=== PATIENT | male | born 1990 | race Caucasian/White ===

== ENCOUNTER 2016-09-28 08:59 | Emergency (ER) | payer OTHER ==
[2016-09-28 09:09] VITALS: TEMP 98.2
--- NOTE | 2016-09-28 09:16 | EDPHY ---
[id number] OF PRESENT ILLNESS: This is a 26-year-old male status post tonsillectomy 08/28/16 who presents with FERRARO. Onset of headache and neck "soreness " September 18. The neck pain occurred with neck rotation and has resolved since onset. The headache has persisted. The FERRARO is moderate and varies in location, sometimes frontal, other times posterior. He admits mild photophobia and intermittent dizziness when the headache is bad. The headache is worsened with standing up or lying flat. He has been using the oxycodone from his tonsillectomy procedure to treat the pain. Has not tried Tylenol and is allergic to NSAIDS. He denies associated fever, sore throat, cough, numbness or weakness, or other complaints. No recent illness. REVIEW OF SYSTEMS: Constitutional: No fever, no chills Eyes: No visual changes ENT: No sore throat Respiratory: No cough, no shortness of breath Cardiac: No chest pain Gastrointestinal: No nausea, no vomiting, no abdominal pain Genitourinary: No hematuria, no dysuria Musculoskeletal: No leg pain or swelling Skin: No rash Neurological: See HPI. Psychiatric: No depression Past Medical/Surgical History: Lacerated liver, recurrent strep throat, splenectomy, tonsillectomy. Social History: Here alone. Smoking Status: Never smoked Physical Exam: General Appearance: Alert, smiling, appears in no pain. In no acute distress. Eyes: Pupils equal and round, no conjunctival pallor or injection ENT, Mouth: Mucous membranes moist Neck: Normal inspection Respiratory: Lungs are clear to auscultation Cardiovascular: Regular rate and rhythm Gastrointestinal: Abdomen is soft and non- tender Neurological: Alert, oriented x3, cranial nerves II through XII intact, motor 5 /5, sensory intact to light touch, normal gait. No pronator drift. Skin: Warm and dry, no rash Extremities: Nontender, no pedal edema Psychiatric: Mood and affect normal Constitutional: Initial Vital Signs Temperature (C) 36.8 C 09/28/16 09:05 Heart Rate 105 H 09/28/16 09:05 Respiratory Rate 18 09/28/16 09:05 Blood Pressure 126/87 H 09/28/16 09:05 O2 Sat (%) 97 09/28/16 09:05 O2 Delivery Mode Room Air Allergies/Adverse Reactions: NSAIDS (Non-Steroidal Anti-Inflamma Allergy (Intermediate, Verified 02/13/16 18: 57) Hives Home Medications: Medication Instructions Recorded NK [No Known Home Meds] 09/28/16 Medical Decision Making - Diagnostics Imaging: Study: CT of the head. Indication: Headache. 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 Correlation with previous studies would be helpful to assess for more specific interval change. The study was read by the radiologist, Dr. Martinez. I viewed the images myself on the PACS system. ED Course/Re-evaluation: This patient presents with a 10 day history of headache, without associated symptoms. He has had a splenectomy in the past, so he is at higher risk for infection, but has not had no recent illness and does not have a fever. He is not ill appearing and I do not suspect bacterial meningitis or acute sinusitis in this patient. CT scan was ordered, given that he recently had tonsillectomy and has a persistent headache. An IV was established and labs ordered. The patient declined IV medications, as he needs to drive home. 1107: Reassessed patient. Discussed results of CT and blood work. Unclear etiology of headache. The differential on the white blood cell count is atypical and there is no old CBC for comparison. I carefully considered whether this patient may have an infection, though I still certainly doubt the presence of a serious infection, given no recent illness and no fever. Have decided that lumbar puncture is not indicated in this patient and that he is safe and stable for discharge home. He is comfortable being discharged. I answered all of his questions. He was given strict return precautions and warnings prior to leaving. He understands to follow up without fail with his primary care provider tomorrow for recheck or return to the emergency department if he is unable to get an appointment. Differential Diagnosis: Headache including but not limited to subarachnoid hemorrhage, migraine headache , tension headache and infectious causes such as meningitis, pharyngitis and sinusitis. - Data Points Laboratory Results: Laboratory Results 09/28/16 09:10 09/28/16 09:10 09/28/16 09:10 WBC 10.48 H 10^3/uL (3.80-9.50) RBC 5.49 10^6/uL (4.40-6.38) Hgb 16.3 g/dL (13.7-17.5) Hct 47.6 % (40.0-51.0) MCV 86.7 fL (81.5-99.8) MCH 29.7 pg (27.9-34.1) MCHC 34.2 g/dL (32.4-36.7) RDW 13.2 % (11.5-15.2) Plt Count 473 H 10^3/uL (150-400) MPV 9.2 fL (8.7-11.7) Neut % (Auto) Not Reported Lymph % (Auto) Not Reported [place] % (Auto) Not Reported Eos % (Auto) Not Reported Baso % (Auto) Not Reported Nucleat RBC Rel Count 0.0 % (0.0-0.2) Absolute Neuts (auto) Not Reported Absolute Lymphs (auto) Not Reported Absolute Monos (auto) Not Reported Absolute Eos (auto) Not Reported Absolute Basos (auto) Not Reported Absolute Nucleated RBC 0.00 10^3/uL (0-0.01) Immature Gran % Not Reported Seg Neutrophils % 18 % Band Neutrophils % 8 % Lymphocytes % 58 % Monocytes % 6 % Eosinophils % 9 % Basophils % 1 % Immature Gran # Not Reported Absolute Seg Neuts 1.89 10^/uL (1.70-6.50) Absolute Band Neuts 0.84 H 10^3/uL (0.00-0.70) Absolute Lymphocytes 6.08 H 10^3/uL (1.00-3.00) Absolute Monocytes 0.63 10^3/uL (0.30-0.80) Absolute Eosinophils 0.94 H 10^3/uL (0.03-0.40) Absolute Basophils 0.10 10^3/uL (0.02-0.10) Atypical Lymphocytes 3+ H Platelet Estimate ADEQUATE (ADEQ) Large Platelets PRESENT H Polychromasia 2+ H Microcytic Cells 2+ H [place] Bodies 1+ H Acanthocytes (Spur) 3+ H Schistocytes 2+ H Smear Review By Pending Sodium 142 mEq/L (134-144) Potassium 4.5 mEq/L (3.5-5.2) Chloride 102 mEq/L (97-110) Carbon Dioxide 27 mEq/l (22-31) Anion Gap 13 mEq/L (8-16) BUN 10 mg/dL (7-23) Creatinine 0.9 mg/dL (0.7-1.3) Estimated GFR > 60 Glucose 84 mg/dL (70-100) Calcium 9.9 mg/dL (8.5-10.4) Departure - Departure Disposition: Home, Routine, Self-Care Clinical Impression: Headache Qualifiers: Qualifier Code: (R51) Headache Condition: Good Instructions: Acute Headache (ED) Additional Instructions: Follow up with your primary care provider tomorrow for reevaluation or return to the emergency department if you cannot get an appointment and you still have a headache. Return to the emergency department immediately for fever, numbness, weakness, vomiting, confusion, or other serious worsening of condition. Referrals: ANGELICA MADDOX [Primary Care Provider] - As per Instructions Report Scribed for: Tierra Quezada Report Scribed by: Julian Stewart Date of Report: 09/28/16 Time of Report: 09:14 Physician Review and Approval Statement: 09/28/16 09:14 Portions of this note were transcribed by a medical liaison. I personally performed a history, physical exam, medical decision making, and confirmed accuracy of information the transcribed note.
[2016-09-28 09:50] LABS: ADD MORPH? NO; ADD SCAN? YES; FRAGMENT RBC FLAG 0 (0-99); HEMATOCRIT 47.6 % (40.0-51.0); HEMOGLOBIN 16.3 g/dL (13.7-17.5); LEFT SHIFT FLG 0 (0-99); LIPEMIA HEMOLYSIS FLAG 90 (0-99); MEAN CELL HEMOGLOBIN 29.7 pg (27.9-34.1); MEAN CELL HEMOGLOBIN CONCENTR. 34.2 g/dL (32.4-36.7); MEAN CELL VOLUME 86.7 fL (81.5-99.8); MEAN PLATELET VOLUME 9.2 fL (8.7-11.7); PLATELET CLUMPS FLAG 0 (0-99); PLATELET COUNT 473 10^3/uL (150-400); RED BLOOD CELL COUNT 5.49 10^6/uL (4.40-6.38); RED CELL DISTRIBUTION WIDTH 13.2 % (11.5-15.2)
[2016-09-28 09:53] LABS: ATYPICAL LYMPHOCYTE FLAG 120 (0-99)
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
[2016-09-28 10:10] LABS: ANION GAP 13 mEq/L (8-16); CALCIUM 9.9 mg/dL (8.5-10.4); CARBON DIOXIDE 27 mEq/l (22-31); CHLORIDE 102 mEq/L (97-110); CREATININE 0.9 mg/dL (0.7-1.3); GLOMERULAR FILTRATION RATE > 60; GLUCOSE 84 mg/dL (70-100); POTASSIUM 4.5 mEq/L (3.5-5.2); SODIUM 142 mEq/L (134-144)
[2016-09-28 10:35] LABS: ADD DIFF? YES; SCAN POSITIVE
[2016-09-28 10:45] LABS: MICROCYTES 2+
[2016-09-28 10:46] LABS: ACANTHOCYTES 3+; LARGE PLATELETS PRESENT; POLYCHROMASIA 2+; SCHISTOCYTES 2+
[2016-09-28 10:47] LABS: PLATELET ESTIMATE ADEQUATE (ADEQ)
[2016-09-28] MEDS ORDERED: ACETAMINOPHEN 500 MG TAB ONE (11:08)
[2016-09-28 11:18] LABS: HOWELL-JOLLY BODIES 1+
[2016-09-28 11:21] VITALS: BP 122/72; PULSE 71; RESP 16; O2SAT 95
== END 2016-09-28 11:21 | disposition home or self-care (01) ==
DX: R51 Headache (principal)

== ENCOUNTER 2016-09-29 15:00 | Emergency (ER) | payer OTHER ==
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
[2016-09-29 17:51] LABS: CSF COLOR SLIGHTLY PINK (COLORLESS)
[2016-09-29 17:53] LABS: CSF APPEARANCE SL. HAZY (CLEAR)
[2016-09-29 18:06] LABS: PROTEIN, CSF 29 mg/dL (12-60)
[2016-09-29 18:24] LABS: CSF APPEARANCE CLEAR (CLEAR); CSF COLOR COLORLESS (COLORLESS); WBC, CSF 0 /mm3 (0-5)
[2016-09-29 18:26] LABS: CSF SUPERNATANT COLORLESS (COLORLESS); WBC, CSF 0 /mm3 (0-5)
[2016-09-29] MEDS ORDERED: ACETAMINOPHEN 325 MG TAB PO ONE (18:41)
[2016-09-29 18:54] VITALS: BP 128/83; PULSE 72; RESP 20; TEMP 98.1; O2SAT 95
== END 2016-09-29 18:53 | disposition home or self-care (01) ==
PROC: 009U3ZX Drainage of Spinal Canal, Percutaneous Approach, Diagnostic (ICD-10-PCS; principal; 2016-09-29)
DX: R51 Headache (principal)

== ENCOUNTER 2016-10-04 15:09 | Emergency (ER) | payer OTHER ==
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
[2016-10-04 16:06] LABS: ADD MORPH? NO; ADD SCAN? YES; FRAGMENT RBC FLAG 0 (0-99); HEMATOCRIT 50.2 % (40.0-51.0); HEMOGLOBIN 17.4 g/dL (13.7-17.5); LEFT SHIFT FLG 0 (0-99); LIPEMIA HEMOLYSIS FLAG 90 (0-99); MEAN CELL HEMOGLOBIN 30.6 pg (27.9-34.1); MEAN CELL HEMOGLOBIN CONCENTR. 34.7 g/dL (32.4-36.7); MEAN CELL VOLUME 88.4 fL (81.5-99.8); MEAN PLATELET VOLUME 9.9 fL (8.7-11.7); PLATELET CLUMPS FLAG 10 (0-99); PLATELET COUNT 428 10^3/uL (150-400); RED BLOOD CELL COUNT 5.68 10^6/uL (4.40-6.38); RED CELL DISTRIBUTION WIDTH 13.5 % (11.5-15.2)
[2016-10-04 16:08] LABS: ATYPICAL LYMPHOCYTE FLAG 130 (0-99)
[2016-10-04] MEDS ORDERED: GADOBUTROL 10 ML VIAL IVP ONE (16:19)
[2016-10-04 16:20] LABS: ALANINE AMINOTRANSFERASE 266 IU/L (21-72); ALBUMIN 4.4 g/dL (3.5-5.0); ALKALINE PHOSPHATASE 104 IU/L (38-126); ANION GAP 17 mEq/L (8-16); ASPARTATE AMINOTRANSFERASE 210 IU/L (17-59); BILIRUBIN,TOTAL 0.6 mg/dL (0.1-1.4); BILIRUBIN-CONJUGATED 0.3 mg/dL (0.0-0.5); BILIRUBIN-UNCONJUGATED 0.3 mg/dL (0.0-1.1); CALCIUM 10.4 mg/dL (8.5-10.4); CARBON DIOXIDE 25 mEq/l (22-31); CHLORIDE 104 mEq/L (97-110); CREATININE 0.9 mg/dL (0.7-1.3); GLOMERULAR FILTRATION RATE > 60; GLUCOSE 133 mg/dL (70-100); POTASSIUM 4.7 mEq/L (3.5-5.2); SODIUM 146 mEq/L (134-144); TOTAL PROTEIN 7.7 g/dL (6.3-8.2)
[2016-10-04 16:32] LABS: ADD DIFF? YES; SCAN POSITIVE
[2016-10-04 16:43] LABS: ACANTHOCYTES 3+; ECHINOCYTES 1+; ELLIPTOCYTES 1+; KERATOCYTES 1+; LARGE PLATELETS PRESENT; PLATELET ESTIMATE ADEQUATE (ADEQ)
--- NOTE | 2016-10-04 17:14 | MR ---
MR Venogram of the Brain 1613 hours History: Severe headaches. Technique: Phase contrast GRE and coronal 2D time of flight MR venogram images of the brain were obta ined without contrast. Findings: Cerebral veins and sinuses including the superior sagittal sinus, transverse sinuses, sigmo id sinuses, and internal cerebral veins appear patent without definite evidence of thrombosis. Impression: No definite evidence of superior sagittal sinus thrombosis. Findings and recommendations discussed with Emergency Department physician, Dr. Tierra Quezada, at 1700 hours today. Final report concurs with initial preliminary interpretation.
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
[2016-10-04 17:31] VITALS: PULSE 60; TEMP 98.4
[2016-10-04 19:23] VITALS: BP 123/83; RESP 18; O2SAT 95
[2016-10-05 14:34] LABS: ANTI EBNA Positive (Negative); ANTI VCA/IgG Positive (Negative); ANTI VCA/IgM Negative (Negative)
== END 2016-10-04 19:21 | disposition home or self-care (01) ==
DX: R51 Headache (principal); R79.89 Other specified abnormal findings of blood chemistry
CPT/HCPCS: 86664-90; 86665-90; A9585